=== PATIENT | male | born 1980 | race Caucasian/White ===

== ENCOUNTER 2018-11-03 12:54 | Emergency (ER) | payer BC ==
[~2018-11-03] VITALS: Ht 182.9 cm; Wt 72.7 kg
[~2018-11-03 12:54] MED LIST: COLACE 100100 MG/CAP PO; MULTIPLE VITAMI1 CAP PO; NORCO 325 MG-51 TAB PO; SUDAFED 12 HOU120 MG PO; VITAMIN D2000 I1 PO
[2018-11-03 13:10] VITALS: BP 147/88; TEMP 98.7
[2018-11-03 14:18] VITALS: PULSE 75
== END 2018-11-03 14:26 | disposition home or self-care (01) ==
LOC: COL.ER 12:54
DX: S61.214A Laceration without foreign body of right ring finger without damage to nail, initial encounter (principal); I10 Essential (primary) hypertension; Z23 Encounter for immunization; W22.8XXA Striking against or struck by other objects, initial encounter

== ENCOUNTER 2018-11-17 14:27 | Emergency (ER) | payer BC ==
[2018-11-17 14:39] VITALS: BP 138/74; PULSE 72; TEMP 98.6
== END 2018-11-17 14:45 | disposition home or self-care (01) ==
LOC: COL.ER 14:27
DX: S61.214D Laceration without foreign body of right ring finger without damage to nail, subsequent encounter (principal); X58.XXXD Exposure to other specified factors, subsequent encounter

== ENCOUNTER 2019-01-06 20:10 | Emergency (ER) | payer BC ==
[~2019-01-06] VITALS: Ht 182.9 cm; Wt 72.7 kg
[2019-01-06 20:22] VITALS: TEMP 97.1
[2019-01-06] MEDS ORDERED: COZAAR 25MG25 MG/TAB PO (23:15)
[2019-01-07 00:50] VITALS: BP 150/77; PULSE 49
== END 2019-01-07 00:50 | disposition home or self-care (01) ==
LOC: COL.ER 20:10
DX: H53.451 Other localized visual field defect, right eye (principal); I10 Essential (primary) hypertension

== ENCOUNTER → 2020-06-12 | Outpatient (CLI) | payer BC ==
[~2020-06-12] MED LIST changes: +COZAAR 25MG25 MG/TAB PO
== END ==
LOC: ZCOL.LAB 15:50
DX: Z20.828 Contact with and (suspected) exposure to other viral communicable diseases (principal)

== ENCOUNTER 2023-10-13 10:40 | Day surgery (SDC) | payer BC ==
[~2023-10-13] VITALS: Ht 185.4 cm; Wt 77.1 kg
[~2023-10-13 10:40] MED LIST changes: +LR 1,000 ML IV SCH; +Ondansetron 4 MG/2 ML VIAL IV PRN
[2023-10-13 11:04] VITALS: BP 141/87; PULSE 63; TEMP 98.8
[2023-10-13] MEDS ORDERED: PLAVIX 75MG TAB75 MG PO (11:06)
[2023-10-13] MEDS ORDERED: COZAAR100 MG PO (11:08)
[2023-10-13] MEDS ORDERED: ASPIRIN 81M81 MG/TA2 PO (11:09)
[2023-10-13] MEDS ORDERED: COREG 6.256.25 MG/TA PO (11:10)
[2023-10-13] MEDS ORDERED: ZYRTEC 10MG10 MG PO (11:11)
[2023-10-13] MEDS ORDERED: CRESTOR20 MG PO (11:11)
[2023-10-13] MEDS ORDERED: Lidocaine PF 2% (20 MG/ML) 5 ML VIAL ONE (11:18)
[2023-10-13 12:10] VITALS: BP 104/79; PULSE 64; TEMP 98
[2023-10-13 12:25] VITALS: BP 114/99; PULSE 58
--- NOTE | 2023-10-13 13:09 | NUR ---
1210-PATIENT ARRIVED TO [facility], DROWSY ON ARRIVAL. PATIENT AMBULATED WITH ASSISTANCE TO RECLINER, WARM BLANKET PROVIDED. VITAL SIGNS TAKEN, VSS. REPORT OBTAINED FROM NELIDA. UPDATE GIVEN TO PATIENT AND SPOUSE AT BEDSIDE. UPDATE PROVIDED BY DR. NYE ABOUT PROCEDURE FINDINGS 1225-VSS. PO FLUIDS GIVEN, PATIENT TOLERATING WELL. PATIENT DENIES COMPLAINTS AT THIS TIME 1240-DISCHARGE INSTRUCTIONS REVIEWED, QUESTIONS INVITED. IV CATHETER DISCONTINUED, TIP INTACT. PRESSURE HELD AND BANDAGE APPLIED. PATIENT DRESSED INDEPENDENTLY. 1252-PATIENT DISCHARGED HOME TO [facility] VIA WHEELCHAIR, ACCOMPANIED BY SPOUSE. ALL BELONGINGS AND D/C PAPERWORK SENT WITH PT.
== END 2023-10-13 12:52 | disposition home or self-care (01) ==
LOC: SDCO 10:40
DX: Z12.11 Encounter for screening for malignant neoplasm of colon (principal); D12.5 Benign neoplasm of sigmoid colon; Z83.719 Family history of colon polyps, unspecified
CPT/HCPCS: J2704; J7120

== ENCOUNTER 2023-10-13 20:28 | Emergency (ER) | payer BC ==
[~2023-10-13] VITALS: Ht 185.4 cm; Wt 75.0 kg
[~2023-10-13 20:28] MED LIST changes: +ASPIRIN 81M81 MG/TA2 PO; +COREG 6.256.25 MG/TA PO; +COZAAR100 MG PO; +CRESTOR20 MG PO; -LR 1,000 ML IV SCH; -Ondansetron 4 MG/2 ML VIAL IV PRN; +PLAVIX 75MG TAB75 MG PO; +ZYRTEC 10MG10 MG PO
[2023-10-13 20:33] VITALS: TEMP 98.5
[2023-10-13 21:24] LABS: BASO % 0.3 % (0.0-2.0); EOS # 0.1 K/mm3 (0.0-0.7); EOS % 0.9 % (0.0-4.0); GRAN % 80.2 % (42.2-75.2); HEMATOCRIT 37.4 % (42.0-52.0); HEMOGLOBIN 13.6 g/dl (13.5-18.0); LYMPH # 0.8 K/mm3 (1.2-3.4); LYMPH % 10.5 % (20.0-51.0); MEAN CELL VOLUME 89 fl (80.0-100.0); MEAN CORPUSCULAR HEMOGLOBIN 32 pg (27-31); MEAN CORPUSCULAR HGB CONC 36 g/dl (33.0-37.0); MEAN PLATELET VOLUME 9.1 fl (7.4-10.4); MONO # 0.6 K/mm3 (0.1-0.6); PLATELET COUNT 177 K/mm3 (130-400); REDCELL DISTRIBUTION WIDTH-CV 11.7 % (11.5-14.5)
[2023-10-13 21:41] LABS: ALBUMIN 3.6 gm/dL (3.5-5.0); BILIRUBIN,TOTAL 1.9 mg/dL (0.2-1.2); CALCIUM 8.7 mg/dL (8.4-10.2); CREATININE, serum 0.85 mg/dL (0.72-1.25); POTASSIUM 3.8 mmol/L (3.5-4.5); TOTAL PROTEIN 6.2 gm/dL (6.2-8.1)
[2023-10-13 22:05] VITALS: BP 124/81; PULSE 68
== END 2023-10-13 22:05 | disposition home or self-care (01) ==
LOC: COL.ER 20:28
PROVIDERS: Nurse Practitioner
DX: K62.5 Hemorrhage of anus and rectum (principal); Z79.82 Long term (current) use of aspirin; Z79.02 Long term (current) use of antithrombotics/antiplatelets